=== PATIENT | female | born 1940 | race American Indian/Alaskan Native ===

== ENCOUNTER 2017-12-17 18:05 | Emergency (ER) | payer MEDICARE ==
[2017-12-17 18:24] VITALS: BP 147/80
--- NOTE | 2017-12-17 22:06 | Emergency Department Report ---
- General Chief complaint: Skin/Abscess/Foreign Body Stated complaint: TICK BITE Time Seen by Provider: 12/17/17 21:51 Source: patient Mode of arrival: Ambulatory Limitations: No Limitations - History of Present Illness Initial comments: Patient sent 5 left [place] female who presents for Tick bite state tick was on her back for 2 days Complains of itching mild redness no fever no chills no discharge no drainage patient does not have diabetes MD complaint: rash, insect bite/sting Onset/Timin -: days(s) Tetanus Up to Date: yes Location: back Severity: moderate Severity scale (0 -10): 3 Quality: burning, other (itching) Consistency: constant Worsens with: none Context: other (tick bite ) Associated symptoms: itching Treatments Prior to Arrival: none - Related Data Previous Rx's Medication Instructions Recorded Last Taken Type Doxycycline [Vibramycin CAP] 100 mg PO Q12HR #20 capsule 12/17/17 Unknown Rx Metoclopramide [Reglan] 10 mg PO ACHS #30 tablet 12/17/17 Unknown Rx diphenhydrAMINE [Benadryl CAP] 25 mg PO Q6HR PRN #30 capsule 12/17/17 Unknown Rx predniSONE [Deltasone] 20 mg PO QDAY #5 tab 12/17/17 Unknown Rx Allergies Allergy/AdvReac Type Severity Reaction Status Date / Time famotidine [From Pepcid] Allergy Unknown Verified 12/17/17 18:24 ibuprofen Allergy Unknown Verified 12/17/17 18:24 Abscess Boil HPI - HPI Chief Complaint: Skin/Abscess/Foreign Body Stated Complaint: TICK BITE Time Seen by Provider: 12/17/17 21:51 Home Medications: Previous Rx's Medication Instructions Recorded Last Taken Type Doxycycline [Vibramycin CAP] 100 mg PO Q12HR #20 capsule 12/17/17 Unknown Rx Metoclopramide [Reglan] 10 mg PO ACHS #30 tablet 12/17/17 Unknown Rx diphenhydrAMINE [Benadryl CAP] 25 mg PO Q6HR PRN #30 capsule 12/17/17 Unknown Rx predniSONE [Deltasone] 20 mg PO QDAY #5 tab 12/17/17 Unknown Rx Allergies/Adverse Reactions: Allergies Allergy/AdvReac Type Severity Reaction Status Date / Time famotidine [From Pepcid] Allergy Unknown Verified 12/17/17 18:24 ibuprofen Allergy Unknown Verified 12/17/17 18:24 ED Review of Systems ROS: Stated complaint: TICK BITE Other details as noted in HPI Constitutional: no symptoms reported Eyes: denies: eye pain, eye discharge, vision change ENT: denies: ear pain, throat pain Respiratory: denies: cough, shortness of breath, wheezing Cardiovascular: denies: chest pain, palpitations Endocrine: no symptoms reported Gastrointestinal: denies: abdominal pain, nausea, diarrhea Genitourinary: denies: urgency, dysuria, discharge Musculoskeletal: denies: back pain, joint swelling, arthralgia Skin: pruritus. denies: rash, lesions, change in color, change in hair/nails Neurological: denies: headache, weakness, paresthesias Psychiatric: denies: anxiety, depression Hematological/Lymphatic: denies: easy bleeding, easy bruising ED Past Medical Hx - Past Medical History Hx Hypertension: Yes Additional medical history: anemia - Surgical History Additional Surgical History: tubiligation,tonsillectomy - Social History Smoking Status: Never Smoker Substance Use Type: None - Medications Home Medications: Home Medications Medication Instructions Recorded Confirmed Last Taken Type Doxycycline [Vibramycin CAP] 100 mg PO Q12HR #20 capsule 12/17/17 Unknown Rx Metoclopramide [Reglan] 10 mg PO ACHS #30 tablet 12/17/17 Unknown Rx diphenhydrAMINE [Benadryl CAP] 25 mg PO Q6HR PRN #30 capsule 12/17/17 Unknown Rx predniSONE [Deltasone] 20 mg PO QDAY #5 tab 12/17/17 Unknown Rx ED Physical Exam - General Limitations: No Limitations General appearance: alert, in no apparent distress - Head Head exam: Present: atraumatic, normocephalic - Eye Eye exam: Present: normal appearance - ENT ENT exam: Present: mucous membranes moist - Neck Neck exam: Present: normal inspection - Respiratory Respiratory exam: Present: normal lung sounds bilaterally. Absent: respiratory distress - Cardiovascular Cardiovascular Exam: Present: regular rate, normal rhythm. Absent: systolic murmur, diastolic murmur, rubs, gallop - GI/Abdominal GI/Abdominal exam: Present: soft, normal bowel sounds - Extremities Exam Extremities exam: Present: normal inspection - Back Exam Back exam: Present: normal inspection, full ROM, other (mid sub scapula erythema raised smooth no drainage no fever no abscess ). Absent: CVA tenderness (R), CVA tenderness (L), muscle spasm, paraspinal tenderness - Neurological Exam Neurological exam: Present: alert, oriented X3 - Psychiatric Psychiatric exam: Present: normal affect, normal mood - Skin Skin exam: Present: warm, dry, intact, normal color, erythema, urticaria. Absent: rash, cyanosis, diaphoretic, vesicles, petechiae, pallor, abrasion, ecchymosis ED Course Vital Signs 12/17/17 18:21 Temperature 98.6 F Pulse Rate 98 H Respiratory 18 Rate Blood Pressure 147/80 O2 Sat by Pulse 100 Oximetry ED Medical Decision Making - Medical Decision Making This is a local reaction to tick bite no abscess plan prednisone and Benadryl Reglan that she compresses followed PCP in 2-3 days there is no anaphylactic response patient did not have diabetes given signs and symptoms of infection will return for same this is not likely cellulitis will prescribe doxycycline at this time. pt's daughter endorses removing tick from back pt concerned for developing infection Critical care attestation.: If time is entered above; I have spent that time in minutes in the direct care of this critically ill patient, excluding procedure time. ED Disposition Clinical Impression: Tick bite Qualifiers: Encounter type: initial encounter Qualified Code(s): W57.XXXA - Bitten or stung by nonvenomous insect and other nonvenomous arthropods, initial encounter Disposition: - TO HOME OR SELFCARE Is pt being admited?: No Does the pt Need Aspirin: No Condition: Good Instructions: Tick Bite (ED) Prescriptions: diphenhydrAMINE [Benadryl CAP] 25 mg PO Q6HR PRN #30 capsule PRN Reason: Itching Doxycycline [Vibramycin CAP] 100 mg PO Q12HR #20 capsule Metoclopramide [Reglan] 10 mg PO ACHS #30 tablet predniSONE [Deltasone] 20 mg PO QDAY #5 tab Referrals: PRIMARY CARE,MD [Primary Care Provider] - 3-5 Days Forms: Work/School Release Form(ED) Time of Disposition: 22:11
[2017-12-17] MEDS ORDERED: DELTASONE PO ONE (22:10)
[2017-12-17] MEDS ORDERED: BENADRYL PO ONE (22:10)
[2017-12-17] MEDS ORDERED: REGLAN PO ONE (22:10)
== END 2017-12-17 22:30 | disposition home or self-care (01) ==
LOC: ED 18:05
DX: S20.469A Insect bite (nonvenomous) of unspecified back wall of thorax, initial encounter (principal); I10 Essential (primary) hypertension; Z88.8 Allergy status to other drugs, medicaments and biological substances; W57.XXXA Bitten or stung by nonvenomous insect and other nonvenomous arthropods, initial encounter; Y93.89 Activity, other specified; Y92.89 Other specified places as the place of occurrence of the external cause; Y99.8 Other external cause status
CPT/HCPCS: 99282; J7512

== ENCOUNTER 2017-12-28 14:00 | Emergency (ER) | payer MEDICARE ==
[2017-12-28 14:14] VITALS: BP 160/79
[2017-12-28] MEDS ORDERED: ZITHROMAX PO ONE (18:38)
[2017-12-28] MEDS ORDERED: TESSALON PERLES PO ONE (18:38)
[2017-12-28] MEDS ORDERED: MUCINEX ER PO ONE (18:38)
[2017-12-28] MEDS ORDERED: TYLENOL PO ONE (18:39)
--- NOTE | 2017-12-28 19:11 | Emergency Department Report ---
Chief Complaint: Upper Respiratory Infection Stated Complaint: CHEST PAIN WITH COUGH/CONGESTION Time Seen by Provider: 12/28/17 18:29 - HPI History of Present Illness: The patient is 77-year-old female who presents for evaluation of cough. The patient reports cough or productive sputum for the past 2 days. She also reports associated chest congestion and mild right-sided chest aching with coughing, no chest pain at rest. She has no midsternal left-sided chest pain, and no pressure-like chest pain, or chest pain with deep breaths. - Exam Vital Signs: Vital Signs 12/28/17 14:10 Temperature 98.6 F Pulse Rate 69 Respiratory 20 Rate Blood Pressure 160/79 O2 Sat by Pulse 99 Oximetry MSE screening note: Focused history and physical exam performed. Due to findings the following was ordered: ED Disposition for MSE Condition: Undetermined Referrals: PRIMARY CARE, [Primary Care Provider] - 3-5 Days
--- NOTE | 2017-12-28 19:44 | Emergency Department Report ---
Upper Respiratory HPI - HPI Chief Complaint: Upper Respiratory Infection Stated Complaint: CHEST PAIN WITH COUGH/CONGESTION Time Seen by Provider: 12/28/17 18:29 URI Symptoms: Rhinorrhea: Yes, Cough: Yes Other History: The patient is 77-year-old female who presents for evaluation of cough. The patient reports cough or productive sputum for the past 2 days. She also reports associated chest congestion and mild right-sided chest aching with coughing, no chest pain at rest. She has no midsternal left-sided chest pain, and no pressure-like chest pain, or chest pain with deep breaths. - Home Meds and Allergies Home Medications: Previous Rx's Medication Instructions Recorded Last Taken Type Doxycycline [Vibramycin CAP] 100 mg PO Q12HR #20 capsule 12/17/17 Unknown Rx Metoclopramide [Reglan] 10 mg PO ACHS #30 tablet 12/17/17 Unknown Rx diphenhydrAMINE [Benadryl CAP] 25 mg PO Q6HR PRN #30 capsule 12/17/17 Unknown Rx predniSONE [Deltasone] 20 mg PO QDAY #5 tab 12/17/17 Unknown Rx ALBUTEROL Inhaler [ProAir HFA 2 puff IH QID PRN #1 inhalation 12/28/17 Unknown Rx Inhaler] Acetaminophen [Tylenol Extra 1,000 mg PO QID PRN #60 tablet 12/28/17 Unknown Rx Strength] guaiFENesin/CODEINE [Robitussin AC] 5 ml PO TID PRN #120 ml 12/28/17 Unknown Rx predniSONE [Deltasone] 20 mg PO QDAY #5 tab 12/28/17 Unknown Rx Allergies/Adverse Reactions: Allergies Allergy/AdvReac Type Severity Reaction Status Date / Time famotidine [From Pepcid] Allergy Unknown Verified 12/17/17 18:24 ibuprofen Allergy Unknown Verified 12/17/17 18:24 ED Review of Systems ROS: Stated complaint: CHEST PAIN WITH COUGH/CONGESTION Other details as noted in HPI Constitutional: denies: chills, fever Eyes: denies: eye pain, eye discharge, vision change ENT: throat pain, congestion Respiratory: cough. denies: shortness of breath, wheezing Cardiovascular: denies: chest pain, palpitations Endocrine: no symptoms reported Gastrointestinal: denies: abdominal pain, nausea, diarrhea Genitourinary: denies: urgency, dysuria, discharge Musculoskeletal: denies: back pain, joint swelling, arthralgia Skin: denies: rash, lesions Neurological: denies: headache, weakness, paresthesias Psychiatric: denies: anxiety, depression Hematological/Lymphatic: denies: easy bleeding, easy bruising ED Past Medical Hx - Past Medical History Hx Hypertension: Yes Additional medical history: anemia - Surgical History Additional Surgical History: tubiligation,tonsillectomy - Social History Smoking Status: Never Smoker Substance Use Type: None - Medications Home Medications: Home Medications Medication Instructions Recorded Confirmed Last Taken Type Doxycycline [Vibramycin CAP] 100 mg PO Q12HR #20 capsule 12/17/17 Unknown Rx Metoclopramide [Reglan] 10 mg PO ACHS #30 tablet 12/17/17 Unknown Rx diphenhydrAMINE [Benadryl CAP] 25 mg PO Q6HR PRN #30 capsule 12/17/17 Unknown Rx predniSONE [Deltasone] 20 mg PO QDAY #5 tab 12/17/17 Unknown Rx ALBUTEROL Inhaler [ProAir HFA 2 puff IH QID PRN #1 inhalation 12/28/17 Unknown Rx Inhaler] Acetaminophen [Tylenol Extra 1,000 mg PO QID PRN #60 tablet 12/28/17 Unknown Rx Strength] guaiFENesin/CODEINE [Robitussin AC] 5 ml PO TID PRN #120 ml 12/28/17 Unknown Rx predniSONE [Deltasone] 20 mg PO QDAY #5 tab 12/28/17 Unknown Rx ED Bronchiolitis Physical Exam - Exam General: Vital signs noted. No distress. Alert and acting appropriately. HEENT: Yes Rhinorrhea, No Pharyngeal Erythema, No Conjuctival Injection, No Dry Mucous Membranes Ear: Neither TM Bulge, Neither TM Erythema, Neither EAC Discharge Neck: No Adenopathy, No Rigidity Lungs: Yes Clear Lung Sounds, Yes Good Air Exchange, Yes Cough, No Wheezes, No Stridor, No Nasal Flaring, No Retractions, No Use of Accessory Muscles Heart: Yes Regular, No Murmur Abdomen: Yes Normal Bowel Sounds, No Tenderness, No Peritoneal Signs Skin: No Rash, No Eczema Neurologic: Alert and oriented, no deficits. Musculoskeletal: Unremarkable. ED Bronchiolitis Tests - Testing Testing: CXR: Normal/Negative ED Physical Exam - General Limitations: No Limitations General appearance: alert, in no apparent distress - Head Head exam: Present: atraumatic, normocephalic - Eye Eye exam: Present: normal appearance - ENT ENT exam: Present: mucous membranes moist - Neck Neck exam: Present: normal inspection, full ROM. Absent: tenderness, lymphadenopathy, thyromegaly - Respiratory Respiratory exam: Present: normal lung sounds bilaterally, chest wall tenderness (left lateral chest wall tederness with cough ). Absent: wheezes, rhonchi, stridor, accessory muscle use, decreased breath sounds, prolonged expiratory - Cardiovascular Cardiovascular Exam: Present: regular rate, normal rhythm, normal heart sounds. Absent: systolic murmur, diastolic murmur, rubs, gallop - GI/Abdominal GI/Abdominal exam: Present: soft, normal bowel sounds - Extremities Exam Extremities exam: Present: normal inspection - Back Exam Back exam: Present: normal inspection - Neurological Exam Neurological exam: Present: alert, oriented X3, CN II-XII intact, normal gait, reflexes normal - Psychiatric Psychiatric exam: Present: normal affect, normal mood - Skin Skin exam: Present: warm, dry, intact, normal color. Absent: rash ED Course Vital Signs 12/28/17 14:10 Temperature 98.6 F Pulse Rate 69 Respiratory 20 Rate Blood Pressure 160/79 O2 Sat by Pulse 99 Oximetry ED Medical Decision Making - Radiology Data Radiology results: image reviewed no infiltrates no opacities - Medical Decision Making This 77-year-old after Armenian female Who presents for cough for one week. Preventing sleep and now lateral chest wall soreness cough productive of yellow thick cough EKG normal sinus rhythm no ST elevated [place] exam does not trigger Hartscrore chest x-ray is clear no infiltrate no opacities plan treatment for URI bronchitis patient will follow with PCP in 2-3 days or return to ED if symptoms worsen patient to DC to home in stable condition at this time patient verbalizes understanding and agreement with discharge plan Critical care attestation.: If time is entered above; I have spent that time in minutes in the direct care of this critically ill patient, excluding procedure time. ED Disposition Clinical Impression: Bronchitis URI (upper respiratory infection) Qualifiers: URI type: unspecified viral URI Qualified Code(s): J06.9 - Acute upper respiratory infection, unspecified Disposition: DC-01 TO HOME OR SELFCARE Is pt being admited?: No Does the pt Need Aspirin: No Condition: Good Instructions: Acute Bronchitis (ED), Upper Respiratory Infection (ED) Prescriptions: Acetaminophen [Tylenol Extra Strength] 1,000 mg PO QID PRN #60 tablet PRN Reason: Pain , Severe (7-10) ALBUTEROL Inhaler [ProAir HFA Inhaler] 2 puff IH QID PRN #1 inhalation PRN Reason: Shortness Of Breath guaiFENesin/CODEINE [Robitussin AC] 5 ml PO TID PRN #120 ml PRN Reason: Cough predniSONE [Deltasone] 20 mg PO QDAY #5 tab Referrals: PRIMARY CARE, [Primary Care Provider] - 3-5 Days Forms: Work/School Release Form(ED) Time of Disposition: 19:49
--- NOTE | 2017-12-28 20:49 | XRay Report ---
FINAL REPORT EXAM: XR CHEST ROUTINE 2V HISTORY: cough, productive TECHNIQUE: PA and lateral views of the chest PRIORS: None. FINDINGS: Lines, tubes, and devices: N/A Lungs and pleura: Trachea is normal in position. Lungs are clear of infiltrate, pleural effusion, vascular congestion, or pneumothorax. Cardiomediastinal silhouette: Cardiac and mediastinal silhouettes are unremarkable. Other: Bony structures are intact. IMPRESSION: No acute cardiopulmonary process seen.
== END 2017-12-28 19:57 | disposition home or self-care (01) ==
LOC: ED 14:00
DX: J40 Bronchitis, not specified as acute or chronic (principal); J06.9 Acute upper respiratory infection, unspecified; I10 Essential (primary) hypertension
CPT/HCPCS: 71046; 93005; 93010